=== PATIENT | female | born 1995 | race American Indian/Alaskan Native ===

== ENCOUNTER 2018-07-13 17:06 | Emergency (ER) | payer SELFPAY ==
[2018-07-13 17:26] VITALS: RESP 18
--- NOTE | 2018-07-13 17:43 | ED PDOC ---
Arrival/HPI - General Chief Complaint: Abdominal Pain Time Seen by Provider: 07/13/18 17:37 Historian: Patient - History of Present Illness Narrative History of Present Illness (Text): 07/13/18 17:38 23 y/o female, pmh including endometriosis/ovarian cyst, nkda, c/o periumbilical pain started today with decrease appetize. Sharp pain, no nausea or vomiting, no diarrhea, non radiating, no pelvic pain, no vaginal bleeding or discharge home, no other medical or psychological complaints. Past Medical History - Provider Review Nursing Documentation Reviewed: Yes - Cardiac Hx Cardiac Disorders: No - Pulmonary Hx Respiratory Disorders: No - Neurological Hx Neurological Disorder: No - HEENT Hx HEENT Disorder: No - Endocrine/Metabolic Hx Endocrine Disorders: No - Hematological/Oncological Hx Blood Disorders: No - Integumentary Hx Dermatological Disorder: No - Musculoskeletal/Rheumatological Hx Fractures: Yes (Right hip) - Genitourinary/Gynecological Other/Comment: Endometriosis - Psychiatric Hx Substance Use: No - Surgical History Other/Comment: Right hip Sx Family/Social History - Physician Review Nursing Documentation Reviewed: Yes Family/Social History: Unknown Family HX Smoking Status: Never Smoked Hx Alcohol Use: No Hx Substance Use: No Allergies/Home Meds Allergies/Adverse Reactions: Allergies No Known Allergies Allergy (Verified 07/13/18 17:26) Review of Systems - Review of Systems Constitutional: absent: Fatigue, Fevers Eyes: absent: Vision Changes ENT: absent: Hearing Changes Respiratory: absent: SOB, Cough Cardiovascular: absent: Chest Pain Gastrointestinal: Abdominal Pain. absent: Diarrhea, Nausea, Vomiting Skin: absent: Rash, Pruritis Neurological: absent: Headache, Dizziness Psychiatric: absent: Anxiety, Depression, Suicidal Ideation Physical Exam Vital Signs Reviewed: Yes Vital Signs Temp Pulse Resp BP Pulse Ox 07/13/18 17:18 98.1 F 65 18 111/69 100 Temperature: Afebrile Blood Pressure: Normal Pulse: Regular Respiratory Rate: Normal Appearance: Positive for: Well-Appearing, Non-Toxic, Comfortable Pain Distress: Moderate Mental Status: Positive for: Alert and Oriented X 3 - Systems Exam Head: Present: Atraumatic, Normocephalic Pupils: Present: PERRL Extroacular Muscles: Present: EOMI Conjunctiva: Present: Normal Mouth: Present: Moist Mucous Membranes Neck: Present: Normal Range of Motion Respiratory/Chest: Present: Clear to Auscultation, Good Air Exchange. No: R espiratory Distress, Accessory Muscle Use Cardiovascular: Present: Regular Rate and Rhythm, Normal S1, S2. No: Murmurs Abdomen: Present: Tenderness (periumbilical tenderness), Normal Bowel Sounds. No: Distention, Peritoneal Signs, Rebound, Guarding, McBurney's Point Tender, Rovsing's Sign Present Back: Present: Normal Inspection. No: CVA Tenderness, Midline Tenderness, Paraspinal Tenderness, Pain with Leg Raise, Decubitus Ulcer Upper Extremity: Present: Normal Inspection. No: Cyanosis, Edema Lower Extremity: Present: Normal Inspection. No: Edema Neurological: Present: GCS=15, CN II-XII Intact, Speech Normal, Motor Func Grossly Intact, Normal Cerebellar Funct, Gait Normal, Memory Normal Skin: Present: Warm, Dry, Normal Color. No: Rashes Psychiatric: Present: Alert, Oriented x 3, Normal Insight, Normal Concentration Medical Decision Making ED Course and Treatment: 07/13/18 17:40 Appendicitis vs. constipation vs. UTI -Labs -CT abdomen and pelvis -UA -IVF/toradol -Observe and reasses 07/13/18 19:55 -Urine hcg is negative -CT abdomen/pelvis ordered and pending for test -Labs are non significant -UA show no UTI -Pain is well control and decreased. 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 Disposition/Present on Arrival - Present on Arrival Any Indicators Present on Arrival: No History of DVT/PE: No History of Uncontrolled Diabetes: No Urinary Catheter: No History of Decub. Ulcer: No History Surgical Site Infection Following: None - Disposition Have Diagnosis and Disposition been Completed?: Yes Diagnosis: Abdominal pain, Enteritis, Ovarian cyst Disposition: HOME/ ROUTINE Disposition Time: 19:55 Condition: GOOD Discharge Instructions (ExitCare): Ovarian Cysts, Viral Gastroenteritis, Acute Abdomen (Belly Pain), Adult (DC) Additional Instructions: Increase fluids Pepcid every 12 hours as needed for indigestion Bentyl every 12 hours as needed for abdominal cramping Followup with GI within 2 days Followup with gynecology within 2 days Followup with primary doctor within 2 days Return to ER with any new/worsening symptoms Prescriptions: Dicyclomine [Dicyclomine HCl] 10 mg PO Q12H PRN #10 cap PRN Reason: abdominal cramping Famotidine [Pepcid] 20 mg PO Q12H PRN #14 tab PRN Reason: Indigestion Referrals: [facility] at [facility] [place] [Outside] - Follow up with primary Natalia Mijares MD [Staff Provider] - Follow up with primary Chloé Lantigua MD [Medical Doctor] - Follow up with primary Yoanan Box MD [Medical Doctor] - Follow up with primary Forms: [employer] ([employer]), WORK NOTE
[2018-07-13 17:53] LABS: URINE BILIRUBIN NEGATIVE (NEGATIVE); URINE BLOOD NEGATIVE (NEGATIVE); URINE GLUCOSE (UA) NEGATIVE (NEGATIVE); URINE LEUKOCYTE ESTERASE NEGATIVE Leu/uL (NEGATIVE); URINE PROTEIN TRACE mg/dL (<30 mg/dL)
[2018-07-13 17:55] LABS: URINE APPEARANCE CLEAR (CLEAR)
[2018-07-13 18:04] LABS: URINE BACTERIA TRACE /hpf
[2018-07-13 18:23] LABS: ALB/GLOB RATIO 1.5 (1.1-1.8); ALT/SGPT 10 U/L (7-56); AST/SGOT 18 U/L (14-36); BLOOD UREA NITROGEN 14 mg/dL (7-21); CALCIUM 8.9 mg/dL (8.4-10.5); GFR NON-AFRICAN AMERICAN > 60; LIPASE 75 U/L (23-300)
[2018-07-13] MEDS ORDERED: Iohexol 350 MG/100 ML VIAL ONE (18:32)
[2018-07-13 18:35] LABS: BASO # 0.02 K/mm3 (0.0-2.0); BASO % 0.4 % (0.0-3.0); EOS # 0.2 (0.0-0.7); EOS % 4.1 % (1.5-5.0); HEMOGLOBIN 10.4 g/dL (12.0-16.0); LYMPH # 1.5 (1.2-3.4); MEAN CELL VOLUME 81.3 fl (80.0-105.0); MEAN CORPUSCULAR HEMOGLOBIN 25.6 pg (25.0-35.0); MEAN CORPUSCULAR HGB CONC 31.4 g/dl (31.0-37.0); MEAN PLATELET VOLUME 9.9 fl (7.0-11.0); MONO # 0.4 (0.1-0.6); MONO % 7.5 % (1.0-6.0); RBC 4.07 10^6/uL (3.5-6.1); RED CELL DISTRIBUTION WIDTH 14.2 % (11.5-14.5); WHITE BLOOD COUNT 5.1 10^3/uL (4.5-11.0)
[2018-07-13 19:20] VITALS: TEMP 98; O2SAT 99
--- NOTE | 2018-07-13 20:57 | ED PDOC ---
Physical Exam Vital Signs Reviewed: Yes Vital Signs Temp Pulse Resp BP Pulse Ox 07/13/18 19:19 98 F 98 H 18 124/59 L 99 07/13/18 17:18 98.1 F 65 18 111/69 100 Temperature: Afebrile Blood Pressure: Normal Pulse: Regular Respiratory Rate: Normal Appearance: Positive for: Well-Appearing, Non-Toxic, Comfortable Pain Distress: None Mental Status: Positive for: Alert and Oriented X 3 - Systems Exam Head: Present: Atraumatic, Normocephalic Pupils: Present: PERRL Extroacular Muscles: Present: EOMI Conjunctiva: Present: Normal Mouth: Present: Moist Mucous Membranes Neck: Present: Normal Range of Motion Respiratory/Chest: Present: Clear to Auscultation, Good Air Exchange. No: Respiratory Distress, Accessory Muscle Use Cardiovascular: Present: Regular Rate and Rhythm, Normal S1, S2, Peripheal Pulses Present Abdomen: Present: Tenderness (periumbilical tenderness, mild), Normal Bowel Sounds. No: Distention, Peritoneal Signs Back: Present: Normal Inspection. No: CVA Tenderness Upper Extremity: Present: Normal Inspection, Normal ROM, NORMAL PULSES, Neurovascularly Intact, Capillary Refill < 2s. No: Cyanosis, Edema, Temperature Abnormalties Lower Extremity: Present: Normal Inspection, Normal ROM Neurological: Present: GCS=15, CN II-XII Intact, Speech Normal, Motor Func Gross ly Intact, Normal Sensory Function, Gait Normal Skin: Present: Warm, Dry, Normal Color. No: Rashes Psychiatric: Present: Alert, Oriented x 3, Normal Insight, Normal Concentration, Normal Affect, Normal Mood Medical Decision Making ED Course and Treatment: 07/13/18 20:55 Initial Plan: * CT result * Reassess and Disposition Patient care endorsed to me by ANSHUL Hood at 19:[address] Abd/Pelvis with IV contrast to rule out appendicitis. Patient resting comfortably in stretcher in NAD with stable vitals. 20:55 CT shows enteritis and ovarian cysts. Pt with history of ovarian cysts and has established gynecological followup. Will advise GI followup for enteritis in addition to supportive care and PMD followup. Diagnostic testing results and plan of care discussed with patient. Strict instructions given regarding prescription use, importance of followup, and signs/symptoms to return to ER including fever, worsening pain, or any other new/worsening symptoms. Pt verbalized understanding of discussion. Patient is A&Ox3, ambulating with steady gait, with vital signs stable for discharge. - Lab Interpretations Lab Results: Total Bilirubin 0.3 mg/dL (0.2-1.3) 07/13/18 18:00 AST 18 U/L (14-36) 07/13/18 18:00 ALT 10 U/L (7-56) 07/13/18 18:00 Alkaline Phosphatase 50 U/L (38-126) 07/13/18 18:00 Total Protein 6.7 g/dL (5.8-8.3) 07/13/18 18:00 Albumin 4.0 g/dL (3.0-4.8) 07/13/18 18:00 Globulin 2.7 gm/dL 07/13/18 18:00 Albumin/Globulin Ratio 1.5 (1.1-1.8) 07/13/18 18:00 Lipase 75 U/L (23-300) 07/13/18 18:00 Urine Color yellow (YELLOW) 07/13/18 17:20 Urine Appearance Clear (CLEAR) 07/13/18 17:20 Urine pH 7.0 (4.7-8.0) 07/13/18 17:20 Ur Specific [place] 1.020 (1.005-1.035) 07/13/18 17:20 Urine Protein Trace mg/dL (<30 mg/dL) H 07/13/18 17:20 Urine Glucose (UA) Negative mg/dL (NEGATIVE) 07/13/18 17:20 Urine Ketones Trace mg/dL (NEGATIVE) H 07/13/18 17:20 Urine Blood Negative (NEGATIVE) 07/13/18 17:20 Urine Nitrate Negative (NEGATIVE) 07/13/18 17:20 Urine Bilirubin Negative (NEGATIVE) 07/13/18 17:20 Urine Urobilinogen 1.0 E.U./dL (<1 E.U./dL) H 07/13/18 17:20 Ur Leukocyte Esterase Negative Josse/uL (NEGATIVE) 07/13/18 17:20 Urine RBC TEST NOT PERFORMED 07/13/18 17:20 Urine WBC 2 - 5 /hpf (0-6) 07/13/18 17:20 Ur Epithelial Cells 6 - 8 /hpf (0-5) H 07/13/18 17:20 Urine Bacteria Trace /hpf (NONE) 07/13/18 17:20 07/13/18 18:00 07/13/18 18:00 Lab Results 07/13/18 18:00: Sodium 138, Potassium 3.8, Chloride 104, Carbon Dioxide 25, Anion Gap 12, BUN 14, Creatinine 0.7, Est GFR ( Amer) > 60, Est GFR (Non- Af Amer) > 60, Random Glucose 86, Calcium 8.9, Total Bilirubin 0.3, AST 18, ALT 10, Alkaline Phosphatase 50, Total Protein 6.7, Albumin 4.0, Globulin 2.7, Albumin/Globulin Ratio 1.5, Lipase 75 07/13/18 18:00: WBC 5.1, RBC 4.07, Hgb 10.4 L, Hct 33.1 L, MCV 81.3, MCH 25.6, MCHC 31.4, RDW 14.2, Plt Count 295, MPV 9.9, Neut % (Auto) 59.0, Lymph % (Auto) 29.0, [place] % (Auto) 7.5 H, Eos % (Auto) 4.1, Baso % (Auto) 0.4, Lymph # (Auto) 1.5, [place] # (Auto) 0.4, Eos # (Auto) 0.2, Baso # (Auto) 0.02, Absolute Neuts (auto) 3.01 07/13/18 17:20: Urine Color yellow, Urine Appearance Clear, Urine pH 7.0, Ur Specific [place] 1.020, Urine Protein Trace H, Urine Glucose (UA) Negative, Urine Ketones Trace H, Urine Blood Negative, Urine Nitrate Negative, Urine Bilirubin Negative, Urine Urobilinogen 1.0 H, Ur Leukocyte Esterase Negative, Urine RBC TEST NOT PERFORMED, Urine WBC 2 - 5, Ur Epithelial Cells 6 - 8 H, Urine Bacteria Trace I have reviewed the lab results: Yes - RAD Interpretation Narrative RAD Interpretations (Text): 07/13/18 20:53 CT Abd/Pelvis with IV contrast: FINDINGS: LUNG BASES: The lung bases appear clear. No pleural effusions are seen. LIVER: Unremarkable. GALLBLADDER AND BILE DUCTS: The gallbladder appears within normal limits. No radioopaque gallstones are seen. No biliary ductal dilatation is evident. PANCREAS: Unremarkable. SPLEEN: Unremarkable. ADRENAL GLANDS: Unremarkable. KIDNEYS, URETERS, AND BLADDER: The kidneys appear within normal limits. There is no hydronephrosis or hydroureter. No urinary calculi are seen. STOMACH AND BOWEL: Thick walled fluid filled duodenum and loops of jejunum as well as ileum compatible with enteritis. Infectious and inflammatory etiologies are considered. Consider consultation with GI service. APPENDIX: No evidence of acute appendicitis on CT examination. PERITONEUM: No free fluid. No free air. LYMPH NODES: No lymphadenopathy is evident. REPRODUCTIVE: Large bilateral ovarian cystic lesions are noted, 7x5 cm on the left and 8 x 4.5 cm on the right. Follow up with pelvic US and/or MRI is recommended. VASCULATURE: No evidence of abdominal aortic aneurysm. BONES: No aggressive appearing osseous lesion. No acute osseous pathology evident. IMPRESSION: 1. Thick walled fluid filled duodenum and loops of jejunum as well as ileum compatible with enteritis. Infectious and inflammatory etiologies are considered. Consider consultation with GI service. 2. Large bilateral ovarian cystic lesions are noted, 7x5 cm on the left and 8 x 4.5 cm on the right. Follow up with pelvic US and/or MRI is recommended. Electronically signed on Jul 13, 2018 8:45:32 PM EDT by: Duncan Jacinto M.D., OSWALD Certified By ABR & CBCCT Fellowship Trained MRI and CT Specialist Radiology Orders: 07/13/18 17:37 ABDOMEN & PELVIS [ABD & PELVIS IV CONTRAST ONLY] [CT] Stat Liberal [employer] Dean: Radiologist - Medication Orders Current Medication Orders: Discontinued Medications Ketorolac Tromethamine (Toradol) 30 mg IVP STAT STA Stop: 07/13/18 18:05 Last Admin: 07/13/18 18:47 Dose: 30 mg MAR Pain Assessment Document 07/13/18 18:47 GMI (Rec: 07/13/18 18:48 GMI [id number]) Pain Reassessment Is this a pain reassessment? Yes Sleep Is patient sleeping during reassessment? No Presence of Pain Presence of Pain Yes IVP Administration Document 07/13/18 18:47 GMI (Rec: 07/13/18 18:48 GMI [id number]) Charges for Administration # of IVP Administrations 1 Disposition/Present on Arrival - Present on Arrival Any Indicators Present on Arrival: No History of DVT/PE: No History of Uncontrolled Diabetes: No Urinary Catheter: No History of Decub. Ulcer: No History Surgical Site Infection Following: None - Disposition Have Diagnosis and Disposition been Completed?: Yes Diagnosis: Abdominal pain, Enteritis, Ovarian cyst Disposition: HOME/ ROUTINE Disposition Time: 20:59 Patient Plan: Discharge Condition: IMPROVED Discharge Instructions (ExitCare): Ovarian Cysts, Viral Gastroenteritis, Acute Abdomen (Belly Pain), Adult (DC) Additional Instructions: Increase fluids Pepcid every 12 hours as needed for indigestion Bentyl every 12 hours as needed for abdominal cramping Followup with GI within 2 days Followup with gynecology within 2 days Followup with primary doctor within 2 days Return to ER with any new/worsening symptoms Prescriptions: Dicyclomine [Dicyclomine HCl] 10 mg PO Q12H PRN #10 cap PRN Reason: abdominal cramping Famotidine [Pepcid] 20 mg PO Q12H PRN #14 tab PRN Reason: Indigestion Referrals: Chloé Lantigua MD [Medical Doctor] - Follow up with primary Natalia Mijares MD [Staff Provider] - Follow up with primary Yoanna Box MD [Medical Doctor] - Follow up with primary [facility] [place] [Outside] - Follow up with primary Forms: [employer] ([employer]), WORK NOTE
[2018-07-13 21:33] VITALS: BP 123/59; PULSE 78
--- NOTE | 2018-07-14 17:22 | CT ---
Date of service: 2018-07-13 19:46:55 PROCEDURE: CT scan abdomen and pelvis.. HISTORY: Periumbilical pain x1 day COMPARISON: None. TECHNIQUE: Contiguous axial images of the abdomen and abdomen and pelvis performed following intravenous injection of approximately 95 cc of Omnipaque 350 contrast material. Additional 2D sagittal and coronal reformats generated. Sagittal reformats generated. Radiation dose: Total exam DLP = 369.12 mGy-cm. This CT exam was performed using one or more of the following dose reduction techniques: Automated exposure control, adjustment of the mA and/or kV according to patient size, and/or use of iterative reconstruction technique. FINDINGS: LOWER THORAX: Unremarkable. LIVER: Liver exhibits normal size and attenuation pattern without mass collection or calcification. Portal and splenic veins are opacified. GALLBLADDER AND BILE DUCTS: Gallbladder is incompletely distended with slight thick-walled appearance. No obvious intraluminal gallbladder calculi. PANCREAS: Unremarkable. No mass. No ductal dilatation. SPLEEN: Spleen exhibits normal size and attenuation pattern without mass collection or calcification. ADRENALS: No adrenal lesions. KIDNEYS AND URETERS: Kidneys demonstrate symmetric nephrograms. No evidence of nephrolithiasis or hydronephrosis. BLADDER: Urinary bladder is incompletely distended with minimal wall thickening. No evidence of intraluminal urinary bladder calculi. REPRODUCTIVE: There are large bilateral adnexal cysts the left-sided which is complex (exhibiting least 1 internal septation) the left adnexal cyst measures approximately 7.75 x 6.4 cm. The right sided adnexal cyst measures approximately 7.7 x 4.9 cm. Pelvic ultrasound could be performed for further evaluation. Uterus appears unremarkable. No gross free fluid seen in the cul de sac. APPENDIX: The appendix is not positively identified on this examination and therefore the possibility of an early acute appendicitis cannot be excluded given the patient's history of periumbilical pain. Repeat CT scan with oral contrast material could be performed if acute appendicitis is suspected clinically. BOWEL: Evaluation of the bowel is limited due to the lack of oral contrast material. The stomach is partially distended with liquid, food debris and air. Multiple predominately fluid-filled loops of small bowel are present many of which exhibit mild wall thickening. Findings could represent an a nonspecific enteritis. Clinical correlation recommended. No evidence of acute mechanical bowel obstruction. There is a moderate amount of stool seen within the cecum at ascending and transverse colon and less so throughout the remaining colon consistent with mild fecal retention/constipation. PERITONEUM: Unremarkable. No fluid collection. No free air. Tiny fat containing umbilical hernia. LYMPH NODES: Unremarkable. No enlarged lymph nodes. VASCULATURE: Unremarkable. No aortic aneurysm. No aortic atherosclerotic calcification or mural plaque present. BONES: No fracture or destructive lesion. The osseous structures appear unremarkable. OTHER FINDINGS: None. IMPRESSION: There are large bilateral adnexal cysts left-sided which appears complex- septate. Follow-up pelvic ultrasound recommended. The appendix is not seen with complete certainty on this exam and the possibility of an early acute appendicitis given the patient's history of periumbilical pain not excluded. Clinical correlation recommended to determine whether repeat CT scan with oral contrast material is warranted. Multiple predominately fluid-filled loops of small bowel that exhibit mild wall thickening. Findings could represent a nonspecific enteritis. Clinical correlation recommended. Note this report was placed in [place] review for follow-up.
== END 2018-07-13 21:33 | disposition home or self-care (01) ==
LOC: ED 17:06
DX: K52.9 Noninfective gastroenteritis and colitis, unspecified (principal); N83.202 Unspecified ovarian cyst, left side; N83.201 Unspecified ovarian cyst, right side
CPT/HCPCS: 74177; 80053; 81001; 81025; 83690; 85025; 96374; 99285; J1885; Q9967